=== PATIENT | female | born 1985 | race Caucasian/White ===

== ENCOUNTER → 2019-03-24 14:19 | Outpatient (CLI) | payer OTHER, MEDICAID, SELFPAY ==
--- NOTE | 2019-03-24 | DI.US.S_ITS ---
PROCEDURE: US OB <= 14 WEEKS FETUS INDICATIONS: DATES OUTSIDE/PRIOR DATING DATA: Last menstrual period (LMP): 01/26/19. LMP-based estimated date of delivery (KLAUS): 11/02/19. First dating scan (date and location): 03/24/19. Estimated date of delivery (KLAUS) from first dating scan: 10/30/19. TECHNIQUE: Real-time scanning was performed of the fetus and maternal pelvic organs, with image documentation. Endovaginal scanning was also performed to better visualize the fetus and maternal ovaries. COMPARISON: None. FINDINGS: Embryo: Frisbee-rump length measured 2 cm corresponding to 8 weeks 4 days. Heart rate measures 163 beats per minute. Measurement variability in dating: +/- 4 weeks by LMP, +/- 7 days by mean sac diameter (use before 6 weeks gestation if crown-rump length not able to be measured), +/- 5 days by crown-rump length (up to 8 weeks 6 days gestation), +/- 7 days by crown-rump length (up to 13 weeks 6 days gestation). Maternal organs: Large simple right ovarian cyst measuring 7.9 x 5.1 x 8.1 cm.. Limited images through the kidneys demonstrate no hydronephrosis. IMPRESSION: 1. 8 week 4 day single living IUP. 2. Large simple right ovarian cyst measuring up to 8.1 cm. Given the size, patient is at increased risk for spontaneous ovarian torsion close clinical correlation and followup is recommended. Dictated by: Evan PEDROZA Interpreted: Gerald Kovacs MD on 03/24/2019 at 15:52 Approved by: Gerald Kovacs M.D. on 03/24/2019 at 17:43
== END ==
PROVIDERS: Visit Provider Family Medicine
DX: Z36.87 Encounter for antenatal screening for uncertain dates (principal); O34.81 Maternal care for other abnormalities of pelvic organs, first trimester; N83.291 Other ovarian cyst, right side; Z3A.08 8 weeks gestation of pregnancy
CPT/HCPCS: 76801; 76817

== ENCOUNTER → 2019-04-18 14:23 | Outpatient (CLI) | payer OTHER, MEDICAID, SELFPAY ==
--- NOTE | 2019-04-18 | DI.US.S_ITS ---
PROCEDURE: US PELVIC COMPLETE INDICATIONS: OVARIAN CYST TECHNIQUE: Real-time scanning was performed of the pelvic organs, with image documentation. Additional endovaginal scanning was necessary due to incomplete visualization of the adnexal and endometrial structures by transabdominal scanning. COMPARISON: [facility], US, US OB <= 14 WEEKS FETUS, 03/24/2019, 14:31. FINDINGS: Transabdominal scanning: Limited scanning through the kidneys shows no hydronephrosis. No pathologic free abdominal or pelvic fluid. Endovaginal scanning: Uterus: Patient is and heart rate measured at 162 beats per minute. Ovaries: Large simple right ovarian cyst unchanged measuring 7.2 x 6.0 x 7.4 cm. Left ovary is normal measuring 2.4 x 1.6 x 2.0 cm. IMPRESSION: No significant change in large right simple ovarian cyst. Given the size, continued sonographic surveillance is recommended as there is increased risk for spontaneous . Dictated by: Evan PEDROZA Interpreted: Donte Santana MD on 04/18/2019 at 15:07 Approved by: Donte Santana M.D. on 04/18/2019 at 16:24
== END ==
PROVIDERS: PCP Internal Medicine; Visit Provider Family Medicine
DX: O34.80 Maternal care for other abnormalities of pelvic organs, unspecified trimester (principal); N83.291 Other ovarian cyst, right side
CPT/HCPCS: 76856

== ENCOUNTER → 2019-06-09 12:18 | Outpatient (CLI) | payer OTHER, MEDICAID, SELFPAY ==
--- NOTE | 2019-06-09 | DI.US.S_ITS ---
PROCEDURE: US OB >= 14 WEEKS FETUS INDICATIONS: ANATOMY SURVEY, RIGHT OVARIAN CYST OUTSIDE/PRIOR DATING DATA: Last menstrual period (LMP): 01/26/19. LMP-based estimated date of delivery (KLUAS): 11/02/19. First dating scan (date and location): 03/24/19. Estimated date of delivery (KLAUS) from first dating scan: 10/30/19. TECHNIQUE: Real-time scanning was performed of the fetus, with image documentation and biometric measurements. Endovaginal scanning: Not needed. COMPARISON: None. FINDINGS: General: A single living intrauterine gestation is present. Presentation: Breech. Placenta: Placental position is posterior, without previa. Amniotic fluid index: No 12.5 cm, normal range is 5-24 cm. heart rate: 150 beats per minute. Maternal cervical canal: 4.4 cm long. Normal lower limit is 2.5 cm. biometrics: Biparietal diameter: 4.6 cm, 19 weeks 6 days Head circumference: 17.7 cm, 20 weeks 1 day Abdominal circumference: 15.0 cm, 20 weeks 2 days Femur length: 3.1 cm, 19 weeks 4 days Estimated gestational age from initial scan: 19 weeks 4 days Composite gestational age from present scan: 20 weeks 0 days Estimated weight and percentile: 322 g, 67th percentile Measurement variability for biometric dating: +/- 7 days from 14 weeks to 15 weeks 6 days gestation, +/- 10 days from 16 weeks to 21 weeks 6 days gestation, +/- 2 weeks from 22 weeks to 27 weeks 6 days gestation, +/- 3 weeks for 28 weeks gestation or later. weight reference: 4500 g or EFW >90/95% is considered macrosomia or large for gestational age. EFW <10% is small for gestational age. EFW 5% or less is considered intra-uterine growth restriction. Anatomic survey: Neuro: Ventricles are non-dilated at less than 10 mm. Cisterna magna is normal at 3-11 mm. Cerebellum is normal in size and morphology. Nuchal skin fold: Normal at less than 6 mm between 14-21 weeks gestational age. Face: Nose and lips, facial profile are normal. Spine: Not well seen due to positioning Heart: 4-chambered heart is present, with normal ventricular outflow tracts. Diaphragm: Diaphragm is intact. Stomach: Left-sided stomach is present. Kidneys: No hydronephrosis. Normal is less than 5 mm in 2nd trimester, less than 7 mm in 3rd trimester. Cord: 3-vessel cord has orthotopic insertion. Bladder: Normal in size. Extremities: All 4 extremities identified. There is a maternal right ovarian cyst measuring up to 5.4 x 4.5 x 3.4 cm, previously larger. IMPRESSION: Appropriate interval growth, no anomaly seen. spine evaluation is limited due to positioning, spine down. Followup OB ultrasound in 7-10 days may be warranted to complete the anatomic survey through the spine region. Maternal right ovarian cyst measures up to 5.4 cm, reduced in overall dimensions versus 8.1 cm maximal dimension previously. The delivery date is projected to be centered on 10/30/19. Dictated by: Jaydon Coronel M.D. on 06/09/2019 at 13:55 Approved by: Jaydon Coronel M.D. on 06/09/2019 at 13:59
== END ==
PROVIDERS: PCP Internal Medicine; Visit Provider Family Medicine
DX: Z36.89 Encounter for other specified antenatal screening (principal); O34.82 Maternal care for other abnormalities of pelvic organs, second trimester; N83.201 Unspecified ovarian cyst, right side; Z3A.20 20 weeks gestation of pregnancy
CPT/HCPCS: 76811

== ENCOUNTER → 2019-06-23 11:31 | Outpatient (CLI) | payer OTHER, MEDICAID, SELFPAY ==
--- NOTE | 2019-06-23 | DI.US.S_ITS ---
PROCEDURE: US OB FOLLOW UP INDICATIONS: 20 WEEK RE-EVAL OF SPINE OUTSIDE/PRIOR DATING DATA: Last menstrual period (LMP): 01/26/19. LMP-based estimated date of delivery (KLAUS): 11/02/19. First dating scan (date and location): 03/24/19. Estimated date of delivery (KLAUS) from first dating scan: 10/30/19. TECHNIQUE: Real-time scanning was performed of the fetus, with image documentation. Endovaginal scanning: Not performed COMPARISON: [facility], , OB >= 14 WEEKS FETUS, 06/09/2019, 12:30. FINDINGS: A single living intrauterine gestation is present. Presentation: Breech. Placenta: Placental position is posterior, without previa. Amniotic fluid index: 14.2 cm, normal range is 5-24 cm. The largest vertical fluid pocket measured 4.0 cm heart rate: 165 beats per minute. Estimated gestational age from initial scan: 21 weeks and 4 days. Visualized spine appear within normal limits. IMPRESSION: Single living intrauterine gestation with estimated gestational age of approximately 21 weeks and 4 days. Normal appearance of the spine. Dictated by: Oneil Gilbert M.D. on 06/24/2019 at 9:46 Approved by: Oneil Gilbert M.D. on 06/24/2019 at 9:50
== END ==
PROVIDERS: PCP Internal Medicine; Referring Provider Family Medicine; Visit Provider Family Medicine
DX: Z36.89 Encounter for other specified antenatal screening (principal); Z3A.21 21 weeks gestation of pregnancy
CPT/HCPCS: 76816

== ENCOUNTER 2019-09-17 10:31 | Outpatient (CLI) | payer OTHER, MEDICAID, SELFPAY ==
--- NOTE | 2019-09-17 11:05 | DI.US.S_ITS ---
PROCEDURE: US OB >= 14 WEEKS FETUS INDICATIONS: WILFREDO/EFW OUTSIDE/PRIOR DATING DATA: Last menstrual period (LMP): 01/26/19. LMP-based estimated date of delivery (KLAUS): 11/02/19. First dating scan (date and location): 03/24/19. Estimated date of delivery (KLAUS) from first dating scan: 10/30/19. TECHNIQUE: Real-time scanning was performed of the fetus, with image documentation and biometric measurements. Endovaginal scanning: Not performed COMPARISON: [facility], OB >= 14 WEEKS FETUS, 06/09/2019, 12:30. FINDINGS: General: A single living intrauterine gestation is present. Presentation: Vertex Placenta: Placental position is fundal, without previa. Amniotic fluid index: 10.5 cm, normal range is 5-24 cm. heart rate: 149 beats per minute. Maternal cervical canal: Not well-seen biometrics: Biparietal diameter: 8.9 cm, 36 weeks, one day Head circumference: 33.6 cm, 38 weeks, 4 day Abdominal circumference: 32.6 cm, 36 weeks, 3 days Femur length: 6.7 cm, 34 weeks, 2 days Estimated gestational age from initial scan: 33 weeks, 6 days. Composite gestational age from present scan: 36 weeks, 3 days Estimated weight and percentile: 2854 g. Measurement variability for biometric dating: +/- 7 days from 14 weeks to 15 weeks 6 days gestation, +/- 10 days from 16 weeks to 21 weeks 6 days gestation, +/- 2 weeks from 22 weeks to 27 weeks 6 days gestation, +/- 3 weeks for 28 weeks gestation or later. weight reference: 4500 g or EFW >90/95% is considered macrosomia or large for gestational age. EFW <10% is small for gestational age. EFW 5% or less is considered intra-uterine growth restriction. IMPRESSION: 1. large intrauterine with fetus in vertex presentation. heart rate is 149 beats per minute. Normal amount of amniotic fluid. 2. Large size for gestational age as above. Dictated by: Gerald Kovacs M.D. on 09/17/2019 at 12:17 Approved by: Gerald Kovacs M.D. on 09/17/2019 at 12:20
== END 2019-09-17 11:20 | disposition home or self-care (01) ==
LOC: LABOR 10:43 → OB 09-18 07:46
PROVIDERS: PCP Internal Medicine; Referring Provider Family Medicine; Visit Provider Family Medicine
DX: O24.419 Gestational diabetes mellitus in pregnancy, unspecified control (principal); N89.8 Other specified noninflammatory disorders of vagina; Z3A.33 33 weeks gestation of pregnancy
CPT/HCPCS: 59025; 76815; 84112; G0378; G0379

== ENCOUNTER 2019-10-14 13:59 | Outpatient (CLI) | payer OTHER, MEDICAID, SELFPAY | END 2019-10-14 14:52 | disposition home or self-care (01) | LOC: LABOR 14:45 → OB 10-15 11:20 | PROVIDERS: PCP Internal Medicine; Referring Provider Family Medicine; Visit Provider Family Medicine | DX: O24.419 Gestational diabetes mellitus in pregnancy, unspecified control (principal); Z3A.37 37 weeks gestation of pregnancy | CPT/HCPCS: 59025; G0378; G0379 ==

== ENCOUNTER → 2019-10-25 10:19 | Outpatient (CLI) | payer OTHER, MEDICAID, SELFPAY ==
[2019-10-26 01:44] LABS: COVID19 Sendout Not Detected (Not Detect)
== END ==
PROVIDERS: Family Provider Internal Medicine; PCP Family Medicine; Visit Provider Physician Assistant
DX: Z01.818 Encounter for other preprocedural examination (principal)
CPT/HCPCS: 87635

== ENCOUNTER 2019-10-28 06:01 | Inpatient (IN) | payer OTHER, MEDICAID, SELFPAY ==
[2019-10-28 06:52] LABS: Add Manual Diff / Slide Review NO; Basophils Absolute Auto 100 /uL (0-100); Basophils Percent Auto 0.8 % (0-2); Eosinophils Absolute Auto 200 /uL (0-450); Eosinophils Percent Auto 2.1 % (2-4); Hematocrit 34.5 % (36-46); Hemoglobin 12.3 g/dL (12.0-16.0); Lymphocytes Absolute Auto 2000 /uL (1100-4500); Lymphocytes Percent Auto 18.3 % (25-40); Mean Corpuscular HGB Conc 35.6 % (30-36); Mean Corpuscular Hemoglobin 30.7 PG (26-34); Mean Corpuscular Volume 86.3 fL (80-100); Monocytes Absolute Auto 800 /uL (0-900); Monocytes Percent Auto 7.2 % (3-14); Neutrophils Absolute Auto 7700 /uL (1500-7000); Neutrophils Percent Auto 71.6 % (50-75); Platelet Count 214 X10^3/uL (150-400); Red Cell Distribution Width 14.1 % (11.6-14.8); White Blood Cell Count 10.8 X10^3/uL (4.5-11.0)
--- NOTE | 2019-10-28 07:43 | PM.OBPNLAB ---
Date/Time Date Patient Seen: 10/28/19 Time Patient Seen: 07:43 Pain Control Comments: Patient feeling well. No leaking fluid no bleeding no pain. Sugar this morning was 69 Contractions Contractions on admission: none Status status: Category l Assessment and Plan Comments: Terminal urine . Repeat . Proceed for operative delivery. Patient and have no questions this morning. Sugar is stable. Does have a history of gestational diabetes. Diet controlled. Sugars have been excellent. No impact on
--- NOTE | 2019-10-28 09:34 | P.OP_ITS ---
Operative Date/Time/Diagnoses Date of procedure: 10/28/19 Time of procedure: 09:35 Pre-op diagnosis: Term intrauterine , repeat section Post-op diagnosis: same Procedure & Clinicians Procedure: Secondary low-transverse section Same procedure as scheduled: Yes Indications: Term intrauterine with history of previous Caesarean section Surgeon: Aron Mckeon Html Web Developer: Loli Fontenot Anesthesia Type: Spinal Operative Notes Findings: Viable male weighing 9 lb 13.7 oz. Apgars 8 and 9. Normal pelvic organs. Closure Type: primary Specimen(s): none sent Applied: catheter Estimated Blood Loss (mL): 400 Blood products transfused: none Procedure in detail: Patient was met in the labor and delivery suite. Questions were answered. Consent had previously been sign. No other issues. had no questions. She was brought to operative theater. Placed on the operative table. Spinal was placed without complications. She was laid no supine wedge position. Prepped and draped in usual manner after Martínez was placed. Time-out was called no complications everything was appropriate. Pfannenstiel incision was then incised. Down to the subcutaneous tissue. Midline was incised until muscle layer was identified. Bluntly subcutaneous tissues in cleared. The fascia was then incised using curved scissors. Under direct visualization. Without complications. [place] is on them placed on the fascia superior edge and bluntly dissected off the muscle layer. Midline was incised with scissors. This was repeated inferiorly without complications. One dissection was used then to enter through the peritoneum. In the superior aspect of the wound. Once small hole was incised blunt dissection was then used to extend the incision. Bladder blade was then placed. Bladder flap was then identified and the incised with scissors. Bluntly dissected off the uterine body. Bladder blade was then replaced. H low transverse incision was then made on the uterus after supper scoring and then sharp dissection until clear fluid was identified. Bladder blade was removed. Incision was then bluntly extended period head was easily visible and actually delivered easily. With the rest of the baby following. Bulb suctioning was done to oral mucosa. Cord was clamped and cut. Handed off to awaiting nurse. Cord bloods were obtained. Placenta was then manually extracted. No complications. Wet lap sponge were then used to stay clean insight cavity of the uterus for products of conception. This was repeated. Ring forceps were used in used to grab the corners of the incision along with the inferior aspect of the uterine incision. Ring forceps were then passed through the cervix into the vagina and handed off the operative theater. 0 chromic was then used in a running locked manner to close the uterine incision. A 2nd imbricating layer was then done with 0 chromic non locked except in the left corner which had a small bleeder. This worked well. X years incision was then cleaned and re-evaluated. Seemed to be quite dry. Irrigation was then done with saline. And removed. Ovaries without identified and appeared to be normal. Fallopian tubes and all of the area of the uterus was normal. No abnormality. No evidence of previous right-sided ovarian cyst. Uterine incision was then re-evaluated after pressure applied and small area on the right side is bleeding. [id number] with 2-0 Vicryl was used with excellent results. Bladder flap was then closed with running 3 0 Vicryl. Peritoneum was then closed with running 3-0 Vicryl. Muscle layer was then approximated with 3 2-0 Vicryl interrupted sutures. No bleeding was noted at this point. Fascia was then closed with running 1 Vicryl. Irrigation was done the subcutaneous tissue. Subcutaneous tissue was then approximated with 3 3-0 Vicryl interrupted sutures. Wound was then closed with running 4-0 subcuticular sutures. Usual dressing was applied. Patient tolerated well. EBL 400 cc. Mother and stable condition. Complications: none Post-operative Condition: stable Disposition: Acute Care Plan for aftercare: Patient will be admitted to labor and delivery for routine care. Expect discharge 48-72 hours
[2019-10-28] MEDS: diphenhydrAMINE 50 MG/ML VIAL 25 MG IV (11:23)
[2019-10-28] MEDS: KETOROLAC 30 MG/ML VIAL IV (16:03)
[2019-10-28] MEDS: OXYCODONE IR 5 MG TABLET PO (17:43)
[2019-10-28] MEDS: DEXTROSE 5%-LACTATED RINGERS 1,000 ML 125 ML IV (20:30)
[2019-10-29] MEDS: OXYCODONE IR 5 MG TABLET PO ×2 (04:07→12:45)
[2019-10-29 06:51] LABS: Hemoglobin 11.1 g/dL (12.0-16.0)
[2019-10-29] MEDS: IBUPROFEN 600 MG TABLET PO ×3 (06:59→19:22)
[2019-10-29] MEDS: DOCUSATE 250 MG CAPSULE PO (08:20)
[2019-10-29] MEDS: PRENATAL VIT,CALC/IRON/FOLIC 1 TABLET 1 TAB PO (08:20)
[2019-10-29] MEDS: OXYCODONE/ACETAMINOPHEN 5/325 TABLET 1 TAB PO ×3 (08:20→21:23)
--- NOTE | 2019-10-29 09:07 | PM.PN.1 ---
Subjective Subjective Date Patient Seen: 10/29/19 Time Patient Seen: 09:07 Interval history: Overall feeling well. Pain is well controlled but still present fine when she is lying down worse when she gets up. She did have 1 episode of bleeding. But otherwise it has been scant. Got up today. Martínez was discontinued. Overall feeling well. Breast-feeding Exam Vital Signs (past 8 hours): Alert smiling female mildly fatigued no acute distress. Lungs are clear. Heart regular rate and rhythm. Uterus is firm. At umbilicus. Incision is clean and dry. Extremities without significant edema and no calf tenderness. Skin is with no rash Objective Labs Result Diagrams: 10/29/19 06:28 Labs: Laboratory Results - last 24 hr 10/29/19 06:28 Hgb 11.1 L Hct 32.0 L Assessment & Plan Assessment & Plan narrative: Postop day 1. Doing extremely well. Hematocrit is minimal drop. She is having minimal bleeding but will watch closely. Continue ambulation. Tolerating diet. Shower today. Maybe discharge him home tomorrow will see how things go
[2019-10-29] MEDS: MAG HYDROX/ALUM/SIMETH 30 ML UDC PO (21:33)
[2019-10-30] MEDS: IBUPROFEN 600 MG TABLET PO ×2 (01:08→10:15)
[2019-10-30] MEDS: OXYCODONE IR 5 MG TABLET PO ×2 (01:08→07:30)
[2019-10-30] MEDS: ACETAMINOPHEN 325 MG TABLET 650 MG PO ×2 (01:08→07:29)
[2019-10-30 07:16] VITALS: BP 115/70; PULSE 80; RESP 17; TEMP 36.2
[2019-10-30] MEDS: PRENATAL VIT,CALC/IRON/FOLIC 1 TABLET 1 TAB PO (07:29)
[2019-10-30] MEDS: DOCUSATE 250 MG CAPSULE PO (07:29)
--- NOTE | 2019-10-30 08:34 | P.DS_ITS ---
Discharge Providers Provider Date of admission: 10/28/19 06:01 Discharge Date: 10/30/19 Primary care physician: Loli Fontenot MD Consults: 10/28/19 10:20 Consult to Heel Lift Gouger Routine Comment: Discharge provider: Loli Fontenot MD Summary Hospital Course Date Patient Seen: 10/30/19 Time Patient Seen: 08:35 Procedures: Repeat elective Hospital Course: Patient was admitted to the hospital underwent elective repeat section. Patient with diet-controlled gestational diabetes. Patient had no complications. Unremarkable section an unremarkable course. Peripartum Data Delivery Method: Section complications: none Status at Discharge Cognitive/behavioral status at discharge: oriented Functional status at discharge: independent ambulation Overall status at discharge: patient is progressing back to baseline Time Spent with Patient Time attestation: Total time spent providing and/or coordinating discharge services:25 Objective Labs Result Diagrams: 10/29/19 06:28 Exam Narrative Exam Narrative: Afebrile vital signs are stable Chest: Clear to auscultation without wheezes rhonchi or crackles Cor: Regular rate and rhythm without any murmur Abdomen: Positive bowel sounds, soft, nontender, incision clean and dry, uterus is firm below the umbilicus Extremities with trace to 1+ pitting edema. Reflexes symmetric and normal Discharge Plan Discharge Plan Patient Disposition: Home Discharge orders & Medications Prescriptions: New acetaminophen 325 mg Tablet 650 mg PO Q6HR PRN (Reason: Fever/Mild Pain (1-3)) Qty: 60 RF: 0 ibuprofen 600 mg Tablet 600 mg PO Q6HR PRN (Reason: Fever/Mild Pain (1-3)) Qty: 60 RF: 0 docusate sodium 250 mg Capsule 250 mg PO DAILY Qty: 60 RF: 0 oxycodone 5 mg Tablet 5 mg PO Q4HR PRN (Reason: Pain, Moderate (4-6)) Qty: 40 RF: 0 Follow up/Referrals: Loli Fontenot MD [Primary Care Provider] - Discharge Data Primary Care Provider: Loli Fontenot
== END 2019-10-30 10:35 | disposition home or self-care (01) | DRG 540 ==
PROVIDERS: Family Medicine; Admitting Provider Family Medicine; Family Provider Internal Medicine; PCP Family Medicine; Referring Provider Family Medicine; Visit Provider Family Medicine
DX: O24.420 Gestational diabetes mellitus in childbirth, diet controlled (principal); Z3A.39 39 weeks gestation of pregnancy; Z37.0 Single live birth
CPT/HCPCS: 36415; 59050; 76815; 85014; 85018; 85025; 86850; 86900; 86901; 87635; G0379; J1200; J1885; J2274; J2405; J2590; J3010; J7121

== ENCOUNTER → 2019-11-06 12:37 | Outpatient (CLI) | payer OTHER, MEDICAID, SELFPAY ==
--- NOTE | 2019-11-06 12:39 | DI.US.S_ITS ---
PROCEDURE: US ABDOMEN COMPLETE INDICATIONS: LEFT FLANK PAIN TECHNIQUE: Real-time scanning was performed of the abdominal and retroperitoneal organs, with image documentation. COMPARISON: None. FINDINGS: Liver: Liver is normal in size and homogeneous in echotexture. Gallbladder: Gallbladder appears normal Biliary ducts: Intrahepatic bile ducts are non-dilated. Extrahepatic bile duct caliber measures 3.6 mm. Normal is 6-7 mm or less in diameter, or 10 mm or less post-cholecystectomy. Pancreas: Visualized portions of the pancreas are sonographically normal. Spleen: Spleen is normal in size and homogeneous in echotexture. Kidneys: Kidneys are normal in size and echotexture. Right kidney measures 13.6 cm long; left kidney measures 13.0 cm long. No hydronephrosis or nephrolithiasis. No solid masses. Aorta: Visualized aorta is normal in caliber at less than 3 cm. Iliacs: Proximal common iliac arteries are normal in caliber at less than 2.5 cm. IVC: Intrahepatic inferior vena cava is patent. Miscellaneous: No free abdominal fluid. IMPRESSION: Normal examination, source of current left flank pain is not seen. Dictated by: Jaydon Coronel M.D. on 11/07/2019 at 9:12 Approved by: Jaydon Coronel M.D. on 11/07/2019 at 9:13
== END ==
PROVIDERS: Family Provider Internal Medicine; PCP Family Medicine; Referring Provider Family Medicine; Visit Provider Family Medicine
DX: R10.32 Left lower quadrant pain (principal)
CPT/HCPCS: 76700